=== PATIENT | female | born 1955 | race Caucasian/White ===

== ENCOUNTER → 2016-09-29 | Outpatient (CLI) | payer OTHER | LOC: LAB 10:07 | PROVIDERS: Internal Medicine Nephrology | DX: N25.81 Secondary hyperparathyroidism of renal origin (principal); N18.4 Chronic kidney disease, stage 4 (severe) | CPT/HCPCS: 36415; 80053; 82043; 82570; 83970; 84100; 84156 ==

== ENCOUNTER → 2016-12-08 | Outpatient (CLI) | payer OTHER ==
[2016-12-08 10:30] LABS: HEMOGLOBIN 12.7 gm/dl (12.3-15.3); RED BLOOD COUNT 4.18 M/UL (4.00-5.10); WHITE BLOOD COUNT 6.9 K/UL (4.5-11.0)
== END ==
LOC: LAB 10:03
PROVIDERS: Internal Medicine Nephrology
DX: N18.4 Chronic kidney disease, stage 4 (severe) (principal); N25.81 Secondary hyperparathyroidism of renal origin
CPT/HCPCS: 36415; 80053; 82728; 83540; 83550; 83970; 84100; 85027

== ENCOUNTER → 2020-06-03 | Outpatient (CLI) | payer MEDICARE, OTHER ==
[~2020-06-03] MED LIST: ACETAMINOPHEN-1 EAC1 PO; ALDACTONE 25MG25 MG PO; AMLODIPINE BESYL5 MG PO; ANORO ELLIPTA1 EACH INH; ATORVASTATIN CA40 MG PO; AUGMENTIN 500-1 EACH PO; DILTIAZEM 24HR360 MG PO; DOK100 MG PO; DULCOLAX10 MG PR; FERROUS SULFAT325 M2 PO; GABAPENTIN300 MG PO; HYDRALAZINE HCL25 MG PO; LACTULOSE10 GM/151 PO; LEVOTHYROXINE125 MCG PO; LOPRESSOR50 MG PO; MIRALAX 119 GR119 GM GT; MYLICON CHEWABL80 MG PO; NORVASC10 MG PO; PANTOPRAZOLE SO40 MG PO; PERCOCET 5-3251 EACH PO; PHOSLO 667 MG667 MG PO; SENNA8.6 MG PO; VENTOLIN HFA 66.7 GM INH; VITAMIN D3125 MCG PO
== END ==
LOC: WCC 09:45
PROC: 0JBP0ZZ Excision of Left Lower Leg Subcutaneous Tissue and Fascia, Open Approach (ICD-10-PCS; principal; 2020-06-03)
DX: L97.222 Non-pressure chronic ulcer of left calf with fat layer exposed (principal); L97.223 Non-pressure chronic ulcer of left calf with necrosis of muscle; L97.212 Non-pressure chronic ulcer of right calf with fat layer exposed; L97.20 Non-pressure chronic ulcer of unspecified calf; I10 Essential (primary) hypertension; J44.9 Chronic obstructive pulmonary disease, unspecified; Z99.2 Dependence on renal dialysis
CPT/HCPCS: 87070; 87205

== ENCOUNTER → 2020-06-10 | Outpatient (CLI) | payer MEDICARE, OTHER | LOC: WCC 09:22 | PROC: 0JBP0ZZ Excision of Left Lower Leg Subcutaneous Tissue and Fascia, Open Approach (ICD-10-PCS; principal; 2020-06-10) | DX: L97.222 Non-pressure chronic ulcer of left calf with fat layer exposed (principal); L97.223 Non-pressure chronic ulcer of left calf with necrosis of muscle; L97.212 Non-pressure chronic ulcer of right calf with fat layer exposed; I10 Essential (primary) hypertension; J44.9 Chronic obstructive pulmonary disease, unspecified; Z99.2 Dependence on renal dialysis ==

== ENCOUNTER 2020-07-16 15:43 | Emergency (ER) | payer MEDICARE, OTHER ==
[~2020-07-16 15:43] MED LIST changes: -MIRALAX 119 GR119 GM GT; -PERCOCET 5-3251 EACH PO
[2020-07-16 17:11] LABS: MONONUCLEAR CELLS 64.7 (75-100); POLYMORPHONUCLEAR % 35.3 (0-25); RBC (AUTOMATED) 108700 (0-2000); WBC (AUTOMATED) 601 (0-200)
== END 2020-07-16 18:23 | disposition home or self-care (01) ==
LOC: ER1 15:43
PROVIDERS: Emergency Medicine
DX: M70.32 Other bursitis of elbow, left elbow (principal); J44.9 Chronic obstructive pulmonary disease, unspecified; N18.9 Chronic kidney disease, unspecified; F17.210 Nicotine dependence, cigarettes, uncomplicated; Z99.2 Dependence on renal dialysis
CPT/HCPCS: 20605; 87070; 87205; 99283

== ENCOUNTER → 2020-09-05 | Day surgery (SDC) | payer MEDICARE, OTHER ==
[~2020-09-05] MED LIST changes: +MIRALAX 119 GR119 GM GT; +PERCOCET 5-3251 EACH PO
[2020-09-05 09:39] LABS: HEMOGLOBIN 10.4 gm/dl (12.3-15.3); RED BLOOD COUNT 3.54 M/UL (4.00-5.10); WHITE BLOOD COUNT 7.9 K/UL (4.5-11.0)
== END | disposition home or self-care (01) ==
LOC: OR 08:35
PROVIDERS: Surgery
DX: N18.6 End stage renal disease (principal); I73.9 Peripheral vascular disease, unspecified; D63.1 Anemia in chronic kidney disease; J44.9 Chronic obstructive pulmonary disease, unspecified; E03.9 Hypothyroidism, unspecified; F17.210 Nicotine dependence, cigarettes, uncomplicated; Z99.2 Dependence on renal dialysis; Z20.822 Contact with and (suspected) exposure to COVID-19; Z79.899 Other long term (current) drug therapy
CPT/HCPCS: 36415; 80053; 85027; 85610; 85730; 86850; 86900; 86901; 87635; 93005; J0690; J1100; J1580; J1644; J2001; J2370; J2405; J2704; J2720; J2795; J7040; J7050; J7120

== ENCOUNTER 2020-09-19 00:36 | Emergency (ER) | payer MEDICARE, OTHER ==
[~2020-09-19 00:36] MED LIST changes: -MIRALAX 119 GR119 GM GT; -PERCOCET 5-3251 EACH PO
== END 2020-09-19 06:15 | disposition left against medical advice (07) ==
LOC: ER1 00:36
DX: Z53.21 Procedure and treatment not carried out due to patient leaving prior to being seen by health care provider (principal)

== ENCOUNTER → 2020-10-09 | Outpatient (CLI) | payer MEDICARE, OTHER ==
[~2020-10-09] MED LIST changes: +MIRALAX 119 GR119 GM GT; +PERCOCET 5-3251 EACH PO
== END ==
LOC: EXRD 15:34
DX: N18.9 Chronic kidney disease, unspecified (principal)
CPT/HCPCS: 93986

== ENCOUNTER 2020-10-18 15:06 | Emergency (ER) | payer MEDICARE, OTHER ==
[~2020-10-18 15:06] MED LIST changes: -MIRALAX 119 GR119 GM GT; -PERCOCET 5-3251 EACH PO
== END 2020-10-18 16:31 | disposition left against medical advice (07) ==
LOC: ER1 15:06
DX: Z53.21 Procedure and treatment not carried out due to patient leaving prior to being seen by health care provider (principal)
CPT/HCPCS: 93005

== ENCOUNTER 2020-11-07 03:38 | Emergency (ER) | payer MEDICARE, OTHER ==
[2020-11-07] MEDS ORDERED: PERCOCET 5-3251 EACH PO (05:33)
== END 2020-11-07 05:44 | disposition home or self-care (01) ==
LOC: ER1 03:38
DX: S32.039A Unspecified fracture of third lumbar vertebra, initial encounter for closed fracture (principal); S32.049A Unspecified fracture of fourth lumbar vertebra, initial encounter for closed fracture; I12.9 Hypertensive chronic kidney disease with stage 1 through stage 4 chronic kidney disease, or unspecified chronic kidney disease; N18.6 End stage renal disease; E03.9 Hypothyroidism, unspecified; Z99.2 Dependence on renal dialysis; F17.200 Nicotine dependence, unspecified, uncomplicated; X58.XXXA Exposure to other specified factors, initial encounter
CPT/HCPCS: 72131; 99283

== ENCOUNTER → 2020-11-28 | Outpatient (CLI) | payer MEDICARE, OTHER ==
[~2020-11-28] MED LIST changes: +MIRALAX 119 GR119 GM GT; +PERCOCET 5-3251 EACH PO
== END ==
LOC: KOH-I 11-25 14:00 → MRI 08:43
DX: S32.000A Wedge compression fracture of unspecified lumbar vertebra, initial encounter for closed fracture (principal); M48.04 Spinal stenosis, thoracic region; K56.41 Fecal impaction; K83.8 Other specified diseases of biliary tract
CPT/HCPCS: 72148; 74170; Q9967

== ENCOUNTER 2020-12-20 01:02 | Emergency (ER) | payer MEDICARE, OTHER ==
[~2020-12-20 01:02] MED LIST changes: -MIRALAX 119 GR119 GM GT
[2020-12-20 01:55] LABS: RED BLOOD COUNT 3.51 M/UL (4.00-5.10); WHITE BLOOD COUNT 11.2 K/UL (4.5-11.0)
[2020-12-20 02:15] LABS: BUN/CREATININE RATIO 5 (0-10)
[2020-12-20] MEDS ORDERED: MIRALAX 119 GR119 GM GT (02:43)
== END 2020-12-20 03:28 | disposition home or self-care (01) ==
LOC: ER1 01:02
PROVIDERS: Family Medicine
DX: K59.00 Constipation, unspecified (principal); E11.22 Type 2 diabetes mellitus with diabetic chronic kidney disease; N18.9 Chronic kidney disease, unspecified; F17.210 Nicotine dependence, cigarettes, uncomplicated; Z90.49 Acquired absence of other specified parts of digestive tract; Z88.0 Allergy status to penicillin
CPT/HCPCS: 71045; 74018; 80053; 82550; 82553; 83874; 84484; 85025; 93005; 99284

== ENCOUNTER 2020-12-21 08:46 | Emergency (ER) | payer MEDICARE, OTHER ==
[~2020-12-21 08:46] MED LIST changes: +MIRALAX 119 GR119 GM GT
[2020-12-21 09:55] LABS: HEMOGLOBIN 10.1 gm/dl (12.3-15.3); RED BLOOD COUNT 3.54 M/UL (4.00-5.10); WHITE BLOOD COUNT 11.8 K/UL (4.5-11.0)
== END 2020-12-21 14:05 | disposition home or self-care (01) ==
LOC: ER1 08:46
PROVIDERS: Emergency Medicine
DX: K56.41 Fecal impaction (principal); N18.6 End stage renal disease; D63.1 Anemia in chronic kidney disease
CPT/HCPCS: 74018; 80053; 83690; 85025; 99284